=== PATIENT | female | born 1960 | race Caucasian/White ===

== ENCOUNTER 2018-03-23 15:26 | Inpatient (IN) | payer OTHER, SELFPAY ==
[2018-03-23 15:27] VITALS: BP 127/66; PULSE 117; RESP 16; TEMP 37.2; O2SAT 99; BMI 18.9
--- NOTE | 2018-03-23 15:37 | CT_ITS ---
STUDY: CT ABDOMEN AND PELVIS WITHOUT CONTRAST REASON FOR EXAM: Female, 57 years old. Right flank pain. RADIATION DOSAGE (If Supplied By Facility): CTDIvol = ( 6.04 ) mGy, DLP = ( 294.46 ) mGycm TECHNIQUE: Transaxial images were obtained from the dome of the diaphragm to the symphysis pubis without oral contrast, and without intravenous contrast. Sagittal and coronal images were reconstructed. Individualized dose optimization techniques were used for this CT. COMPARISON: None. FINDINGS: There is a 0.5 cm nodular density in the left lung base. The visualized portions of the heart are within normal limits. Normal liver. Normal gallbladder and extrahepatic biliary system. Normal spleen. Normal pancreas. Normal bilateral adrenal glands. There is mild hydronephrosis of the right kidney. Normal left kidney. No stones are seen. There are calcified phleboliths in the pelvis. Normal visualized stomach. Normal small intestine. Normal colon. The appendix is visualized and appears normal. Normal abdominal aorta. Normal inferior vena cava. Normal retroperitoneum. Normal urinary bladder. There is no free fluid in the abdomen or pelvis. Normal abdominal wall. There is grade 1 spondylolisthesis at L5-S1 with bilateral pars interarticularis defects of L5. CT/Abdomen/Pelvis without Cont IMPRESSION: Mild right hydronephrosis. No stones are seen. Electronically Signed: Carlos Burnette MD at 17:19 EDT , Service support ,
--- NOTE | 2018-03-23 15:38 | ED.VISSUMM ---
- ER Visit Summary Date of Service: 03/23/18 Chief Complaint: I think I have a kidney stone History of Present Illness: The patient is a 57 F who presents with right flank pain and abdominal pain similar to when she has had kidney stones in the past. The last episode she had was about 2-3 years ago. She does have a history of requiring a ureteral stent. She has had sharp right flank pain which waxes and wanes since yesterday. She currently rates this as a 7 out of 10. She also complains of suprapubic abdominal pressure-like pain. She denies fevers nausea vomiting. No recent illness otherwise. She does report urinary urgency. No gross hematuria. Physical Examination: Afebrile heart rate 117 Patient appears uncomfortable Heart regular rhythm tachycardia Lungs are clear Abdomen soft nondistended she does have some suprapubic tenderness Right CVA tenderness Alert Test Results: Laboratory studies notable for white blood cell count of 18.5. Urinalysis shows 500 leukocyte esterase positive nitrates greater than 100 WBCs and 2+ bacteria. Lactic acid is normal. Blood and urine cultures were sent. CT the flank shows mild right hydronephrosis otherwise normal. Emergency Department Course and Treatment: Patient was treated with IV fluids and Toradol here. She is resting comfortably on reevaluation. However given her tachycardia leukocytosis and flank pain I do believe this is pyelonephritis. She was given IV Rocephin and I feel should be admitted. She is agreeable to this plan. Treatment Plan: [] Disposition: Admit Impression: Pyelonephritis This note was generated with [employer] dictation software. It may contain incorrect words, spelling, and punctuation that were not noted in review of the chart prior to signing ED Disposition - Plan for ED Patient: Chief Complaint: Flank Pain Referrals: Care Physician,No Primary [Primary Care Provider] -
[2018-03-23] MEDS: Ketorolac 30 MG/ML Syringe IV (16:01)
[2018-03-23] MEDS: 0.9% Normal Saline 1,000 ML 1000 ML IV (16:01)
[2018-03-23 16:15] LABS: Mucous, Urine 0 SEEN /hpf (<or=2+); Squamous Epithelial Cells - UA 0 SEEN /hpf (5-10)
[2018-03-23 16:18] LABS: Color, Urine Straw (Yellow); Glucose, Dipstick Normal (Normal); Ketone-Dipstick Negative (Negative); Leukocyte Esterase-Dipstick 500 /ul (Negative); Nitrite-Dipstick Positive (Negative); Occult Blood-Urine 250 /ul (Negative); Protein-Dipstick 100 mg/dl (Negative); Urine Bilirubin Dipstick Negative (Negative); Urine Clarity Cloudy (Clear); Urine Urobilinogen Normal (Normal)
[2018-03-23 16:19] LABS: Absolute Lymphocyte Count 1.94 X10^3/ul (0.83-4.51); Absolute Neutrophil Count 15.1 X10^3/uL (2.0-7.7); Basophil# 0.04 X10^3/uL; Basophil% 0.2 % (0-1); Eosinophil# 0.14 X10^3/uL; Eosinophils% 0.8 % (0-5); Hematocrit 42.5 % (37-47); Hemoglobin 14.1 g/dl (12.0-15.0); Lymphocyte # 1.94 X10^3/ul (4.0); Lymphocyte % 10.5 % (19-41); Mean Corp Hgb Conc 33.2 g/gl (32-36); Mean Corpuscular Hgb 30.7 pg (27.0-32.0); Mean Corpuscular Volume 92.4 fL (81-99); Mean Platelet Vol. 10.1 fl (6.2-12.0); Monocyte# 1.26 X10^3/uL; Monocyte% 6.8 % (0-10); Neutrophil # 15.12 X10^3/uL (2.7-7.7); Neutrophil % 81.6 % (47-70); Platelet Count 262 K/mm3 (150-450); RBC Distribution Width CV 13.7 % (11.6-14.6); RBC Distribution Width SD 45.9 fl (35.1-43.9); White Blood Count 18.5 K/mm3 (4.4-11.0)
[2018-03-23 16:20] LABS: POSITIVE COUNT NO; POSITIVE DIFFERENTIAL NO; POSITIVE MORPHOLOGY NO
[2018-03-23 16:24] LABS: Red Blood Cells-Urine 25-50 SEEN /hpf (0-5); White Blood Cells >100 SEEN /hpf (0-5)
[2018-03-23 16:26] LABS: Amorphous Sediment 2+
[2018-03-23 16:27] LABS: Bacteria 2+ /hpf (None Seen)
[2018-03-23 16:32] LABS: Anion Gap 8 (5-15); BUN 8 mg/dL (7-18); BUN/Creat Ratio 9.7 RATIO (10-20); Calcium,Total 8.8 mg/dL (8.5-10.1); Chloride 104 mmol/L (98-107); Creatinine, Serum 0.82 mg/dL (0.55-1.02); EST Glomerular Filtration Rate 75 mL/min (>60); Est Glom Filt Rate - Afr Amer 91 mL/min (>60); Estimated Creatinine Clearance 62.21 ml/min; Glucose 98 mg/dL (74-106); Potassium 3.9 mmol/L (3.5-5.1); Sodium Level 141 mmol/L (136-145)
[2018-03-23] MEDS: Ceftriaxone 1 GM/50 ML BAG IV (18:00)
[2018-03-23 18:01] VITALS: TEMP 36.7
[2018-03-23 18:11] VITALS: BP 118/79; PULSE 90; RESP 16; O2SAT 98
[2018-03-23 18:19] VITALS: BP 188/79; PULSE 72; RESP 16; TEMP 36.7; O2SAT 99
[2018-03-23] MEDS: HYDROmorphone 0.5 MG/0.5 ML SYRINGE IV (18:25)
--- NOTE | 2018-03-23 18:29 | PCM.HP.STD ---
Problem List (1) Sepsis Status: Acute (2) Pyelonephritis Status: Acute (3) Hydronephrosis Status: Acute History of Present Illness Date of Admission: 03/23/18 Chief Complaint: right flank pain The patient is a 57 year old F presents with right-sided pelvic pain and bladder pain. Began yesterday and is persisted. Patient does have a history of kidney stones in the family. Presented to the emergency room and was found to be septic. CAT scan showed some mild right hydronephrosis. Urinalysis positive for urinary tract infection and blood and urine cultures were performed. Patient received Rocephin. [] Past Medical History Medical History: Medical History (Last Updated 03/23/18 @ 18:31 by Tye Rinaldi DO) Kidney stones N20.0 Allergies No Known Allergies Allergy (Verified 03/23/18 15:29) Psychiatric History: No pertinent psych hx Lives: Spouse/ Significant Other Smoking Status: Current every day smoker Tobacco Use: Cigarettes Alcohol: None Drugs: None - *Family History Maternal History Items: - - no CAD Review of Systems Constitutional: Denies: Anorexia, Chills, Fever Eyes: Denies: Blurred vision, Double vision HEENT: Denies: Head Aches, Sinus Congestion, Sinus Drainage Cardiovascular: Denies: Chest Pain, Palpitations Respiratory: Denies: Cough, Shortness of breath at rest, Sputum production Gastrointestinal: Reports: - - suprapubic. right flank pain.. Denies: Constipation, Diarrhea, Dyspepsia Genitourinary: Denies: Dysuria Musculoskeletal: Denies: Joint Pain, Joint Tenderness Skin: Denies: Dryness, Jaundice Neurological: Denies: Numbness, Tingling, Focal weakness Psychiatric: Denies: Anxiety, Depression Hematologic/ Lymphatic: Denies: Easy Bruising, Easy Bleeding, Hx of blood clot Comment: All review of systems are negative except as mentioned in the history of present illness and the other review of systems. VTE Information - Inpt Only VTE Present on Admission: No VTE Pharm Prophylaxis ordered?: Yes Patient Problems: Active and Suspected Problems Sepsis (Acute) Pyelonephritis (Acute) Hydronephrosis (Acute) - Physical Exam General: Alert, Cooperative, No apparent distress, Well developed, Well nourished HEENT: Atraumatic, Normocephalic Oral: Moist Mucosa, No Gingival or Mucosal Lesions/ Ulcerations Neck: No Nodes, Thyroid Normal Size and Texture Lungs: Clear to auscultation, Normal air movement, No rhonchi, No wheeze Cardiovascular: Regular rate, Regular Rhythm, Normal S1, Normal S2, No murmurs Abdomen: Bowel Sounds Present, Soft, Non-Distended, No Hepato-splenomegaly, - - Right costovertebral angle tenderness Extremities: No edema, No Calf Tenderness Skin: No rashes, No breakdown Musculoskeletal: No Tenderness to Palpation of Joints or Extremities, No Muscle Wasting Neurological: Sensory exam intact to light touch and pain, Coordination normal Psych/Mental Status: Normal Affect, Appropriate Vital Signs Temp Pulse Resp BP Pulse Ox 36.7 C 72 16 188/79 H 99 03/23/18 18:19 03/23/18 18:19 03/23/18 18:19 03/23/18 18:19 03/23/18 18:19 Oxygen Delivery Method Room Air Weight: 53.342 kg Body Mass Index (BMI) 18.9 Laboratory Tests Past 24 Hrs 03/23/18 03/23/18 03/23/18 16:00 16:00 16:00 WBC 18.5 H RBC 4.60 Hgb 14.1 Hct 42.5 MCV 92.4 MCH 30.7 MCHC 33.2 RDW 13.7 RDW Differential 45.9 H Plt Count 262 MPV 10.1 Immature Gran % (Auto) 0.100 Neut % (Auto) 81.6 H Lymph % (Auto) 10.5 L [place] % (Auto) 6.8 Eos % (Auto) 0.8 Baso % (Auto) 0.2 Absolute Neuts (auto) 15.1 H Absolute Lymphs (auto) 1.94 Total Counted Not Reportable Sodium 141 Potassium 3.9 Chloride 104 Carbon Dioxide 29.0 Anion Gap 8 BUN 8 Creatinine 0.82 Estim Creat Clear Calc 62.21 Est GFR (MDRD) Af Amer 91 Est GFR (MDRD) Non-Af 75 BUN/Creatinine Ratio 9.7 L Glucose 98 Lactic Acid Calcium 8.8 Urine Color Straw Urine Clarity Cloudy Urine pH 7.0 Ur Specific [place] 1.010 Urine Protein 100 H Urine Glucose (UA) Normal Urine Ketones Negative Urine Occult Blood 250 H Urine Nitrite Positive H Urine Bilirubin Negative Urine Urobilinogen Normal Ur Leukocyte Esterase 500 H Urine RBC 25-50 SEEN Urine WBC >100 SEEN Ur Squamous Epith Cells 0 SEEN Amorphous Sediment 2+ Urine Bacteria 2+ Urine Mucus 0 SEEN 03/23/18 17:08 WBC RBC Hgb Hct MCV MCH MCHC RDW RDW Differential Plt Count MPV Immature Gran % (Auto) Neut % (Auto) Lymph % (Auto) [place] % (Auto) Eos % (Auto) Baso % (Auto) Absolute Neuts (auto) Absolute Lymphs (auto) Total Counted Sodium Potassium Chloride Carbon Dioxide Anion Gap BUN Creatinine Estim Creat Clear Calc Est GFR (MDRD) Af Amer Est GFR (MDRD) Non-Af BUN/Creatinine Ratio Glucose Lactic Acid 1.0 Calcium Urine Color Urine Clarity Urine pH Ur Specific [place] Urine Protein Urine Glucose (UA) Urine Ketones Urine Occult Blood Urine Nitrite Urine Bilirubin Urine Urobilinogen Ur Leukocyte Esterase Urine RBC Urine WBC Ur Squamous Epith Cells Amorphous Sediment Urine Bacteria Urine Mucus Clinical Impression(s) from Imaging Studies Abdomen/Pelvis CT 03/23/18 15:37 IMPRESSION: Mild right hydronephrosis. No stones are seen. Electronically Signed: Carlos Burnette MD at 17:19 EDT , Service support , Assessment/Plan All Active Problems Sepsis (Acute) Pyelonephritis (Acute) Hydronephrosis (Acute) 1. Sepsis Present on arrival Secondary to pyelonephritis Lactic acid was normal IV fluids 2. Right-sided pyelonephritis Continue with Rocephin De-escalate antibiotics accordingly based on culture results 3. Left-sided hydronephrosis Possibly related with a passed stone Monitor labs Follow-up urology as outpatient unless symptoms do get worse while she is here. 4. DVT prophylaxis with Lovenox Code Visit Inpatient E&M: 40894 Init Hosp L3
--- NOTE | 2018-03-23 18:36 | HP.PCM_ITS ---
Problem List (1) Sepsis Status: Acute (2) Pyelonephritis Status: Acute (3) Hydronephrosis Status: Acute History of Present Illness Date of Admission: 03/23/18 Chief Complaint: right flank pain The patient is a 57 year old F presents with right-sided pelvic pain and bladder pain. Began yesterday and is persisted. Patient does have a history of kidney stones in the family. Presented to the emergency room and was found to be septic. CAT scan showed some mild right hydronephrosis. Urinalysis positive for urinary tract infection and blood and urine cultures were performed. Patient received Rocephin. [] Past Medical History Medical History: Medical History (Last Updated 03/23/18 @ 18:31 by Tye Rinaldi DO) Kidney stones N20.0 Allergies No Known Allergies Allergy (Verified 03/23/18 15:29) Psychiatric History: No pertinent psych hx Lives: Spouse/ Significant Other Smoking Status: Current every day smoker Tobacco Use: Cigarettes Alcohol: None Drugs: None - *Family History Maternal History Items: - - no CAD Review of Systems Constitutional: Denies: Anorexia, Chills, Fever Eyes: Denies: Blurred vision, Double vision HEENT: Denies: Head Aches, Sinus Congestion, Sinus Drainage Cardiovascular: Denies: Chest Pain, Palpitations Respiratory: Denies: Cough, Shortness of breath at rest, Sputum production Gastrointestinal: Reports: - - suprapubic. right flank pain.. Denies: Constipation, Diarrhea, Dyspepsia Genitourinary: Denies: Dysuria Musculoskeletal: Denies: Joint Pain, Joint Tenderness Skin: Denies: Dryness, Jaundice Neurological: Denies: Numbness, Tingling, Focal weakness Psychiatric: Denies: Anxiety, Depression Hematologic/ Lymphatic: Denies: Easy Bruising, Easy Bleeding, Hx of blood clot Comment: All review of systems are negative except as mentioned in the history of present illness and the other review of systems. VTE Information - Inpt Only VTE Present on Admission: No VTE Pharm Prophylaxis ordered?: Yes Patient Problems: Active and Suspected Problems Sepsis (Acute) Pyelonephritis (Acute) Hydronephrosis (Acute) - Physical Exam General: Alert, Cooperative, No apparent distress, Well developed, Well nourished HEENT: Atraumatic, Normocephalic Oral: Moist Mucosa, No Gingival or Mucosal Lesions/ Ulcerations Neck: No Nodes, Thyroid Normal Size and Texture Lungs: Clear to auscultation, Normal air movement, No rhonchi, No wheeze Cardiovascular: Regular rate, Regular Rhythm, Normal S1, Normal S2, No murmurs Abdomen: Bowel Sounds Present, Soft, Non-Distended, No Hepato-splenomegaly, - - Right costovertebral angle tenderness Extremities: No edema, No Calf Tenderness Skin: No rashes, No breakdown Musculoskeletal: No Tenderness to Palpation of Joints or Extremities, No Muscle Wasting Neurological: Sensory exam intact to light touch and pain, Coordination normal Psych/Mental Status: Normal Affect, Appropriate Vital Signs Temp Pulse Resp BP Pulse Ox 36.7 C 72 16 188/79 H 99 03/23/18 18:19 03/23/18 18:19 03/23/18 18:19 03/23/18 18:19 03/23/18 18:19 Oxygen Delivery Method Room Air Weight: 53.342 kg Body Mass Index (BMI) 18.9 Laboratory Tests Past 24 Hrs 03/23/18 03/23/18 03/23/18 16:00 16:00 16:00 WBC 18.5 H RBC 4.60 Hgb 14.1 Hct 42.5 MCV 92.4 MCH 30.7 MCHC 33.2 RDW 13.7 RDW Differential 45.9 H Plt Count 262 MPV 10.1 Immature Gran % (Auto) 0.100 Neut % (Auto) 81.6 H Lymph % (Auto) 10.5 L [place] % (Auto) 6.8 Eos % (Auto) 0.8 Baso % (Auto) 0.2 Absolute Neuts (auto) 15.1 H Absolute Lymphs (auto) 1.94 Total Counted Not Reportable Sodium 141 Potassium 3.9 Chloride 104 Carbon Dioxide 29.0 Anion Gap 8 BUN 8 Creatinine 0.82 Estim Creat Clear Calc 62.21 Est GFR (MDRD) Af Amer 91 Est GFR (MDRD) Non-Af 75 BUN/Creatinine Ratio 9.7 L Glucose 98 Lactic Acid Calcium 8.8 Urine Color Straw Urine Clarity Cloudy Urine pH 7.0 Ur Specific [place] 1.010 Urine Protein 100 H Urine Glucose (UA) Normal Urine Ketones Negative Urine Occult Blood 250 H Urine Nitrite Positive H Urine Bilirubin Negative Urine Urobilinogen Normal Ur Leukocyte Esterase 500 H Urine RBC 25-50 SEEN Urine WBC >100 SEEN Ur Squamous Epith Cells 0 SEEN Amorphous Sediment 2+ Urine Bacteria 2+ Urine Mucus 0 SEEN 03/23/18 17:08 WBC RBC Hgb Hct MCV MCH MCHC RDW RDW Differential Plt Count MPV Immature Gran % (Auto) Neut % (Auto) Lymph % (Auto) [place] % (Auto) Eos % (Auto) Baso % (Auto) Absolute Neuts (auto) Absolute Lymphs (auto) Total Counted Sodium Potassium Chloride Carbon Dioxide Anion Gap BUN Creatinine Estim Creat Clear Calc Est GFR (MDRD) Af Amer Est GFR (MDRD) Non-Af BUN/Creatinine Ratio Glucose Lactic Acid 1.0 Calcium Urine Color Urine Clarity Urine pH Ur Specific [place] Urine Protein Urine Glucose (UA) Urine Ketones Urine Occult Blood Urine Nitrite Urine Bilirubin Urine Urobilinogen Ur Leukocyte Esterase Urine RBC Urine WBC Ur Squamous Epith Cells Amorphous Sediment Urine Bacteria Urine Mucus Clinical Impression(s) from Imaging Studies Abdomen/Pelvis CT 03/23/18 15:37 IMPRESSION: Mild right hydronephrosis. No stones are seen. Electronically Signed: Carlos Burnette MD at 17:19 EDT , Service support , Assessment/Plan All Active Problems Sepsis (Acute) Pyelonephritis (Acute) Hydronephrosis (Acute) 1. Sepsis * Present on arrival * Secondary to pyelonephritis * Lactic acid was normal * IV fluids 2. Right-sided pyelonephritis * Continue with Rocephin * De-escalate antibiotics accordingly based on culture results 3. Left-sided hydronephrosis * Possibly related with a passed stone * Monitor labs * Follow-up urology as outpatient unless symptoms do get worse while she is here. 4. DVT prophylaxis with Lovenox Code Visit Inpatient E&M: 99570 Init Hosp L3
[2018-03-23 18:55] VITALS: BMI 18.8
[2018-03-23 18:58] VITALS: BMI 18.9
[2018-03-23 19:07] VITALS: BP 116/72; PULSE 83; RESP 18; TEMP 36.6; O2SAT 99
[2018-03-23] MEDS: 0.9% Normal Saline 1,000 ML 150 ML IV (20:29)
[2018-03-23] MEDS: Phenazopyridine 95 MG Tablet 190 MG PO (20:30)
[2018-03-23] MEDS: oxyCODONE 5 MG Tablet PO (20:35)
[2018-03-23] MEDS: Acetaminophen 325 MG Tablet 650 MG PO (22:43)
[2018-03-24 00:56] VITALS: BP 110/74; PULSE 89; RESP 18; TEMP 36.7; O2SAT 100
[2018-03-24] MEDS: oxyCODONE 5 MG Tablet PO ×4 (00:59→20:41)
[2018-03-24 05:52] LABS: Absolute Lymphocyte Count 2.14 X10^3/ul (0.83-4.51); Basophil# 0.05 X10^3/uL; Basophil% 0.6 % (0-1); Eosinophils% 2.5 % (0-5); Hematocrit 33.2 % (37-47); Hemoglobin 10.7 g/dl (12.0-15.0); Lymphocyte # 2.14 X10^3/ul (4.0); Lymphocyte % 26.4 % (19-41); Mean Corp Hgb Conc 32.2 g/gl (32-36); Mean Platelet Vol. 10.1 fl (6.2-12.0); Monocyte# 0.73 X10^3/uL; Neutrophil # 4.99 X10^3/uL (2.7-7.7); Neutrophil % 61.4 % (47-70); Platelet Count 184 K/mm3 (150-450); RBC Distribution Width CV 13.8 % (11.6-14.6); Red Blood Count 3.57 M/mm3 (4.2-5.4); White Blood Count 8.1 K/mm3 (4.4-11.0)
[2018-03-24 05:53] LABS: POSITIVE COUNT NO; POSITIVE DIFFERENTIAL NO; POSITIVE MORPHOLOGY NO
[2018-03-24 06:26] LABS: Anion Gap 6 (5-15); BUN 7 mg/dL (7-18); BUN/Creat Ratio 10.4 RATIO (10-20); Calcium,Total 7.4 mg/dL (8.5-10.1); Chloride 109 mmol/L (98-107); Creatinine, Serum 0.68 mg/dL (0.55-1.02); EST Glomerular Filtration Rate 95 mL/min (>60); Est Glom Filt Rate - Afr Amer 114 mL/min (>60); Estimated Creatinine Clearance 74.63 ml/min; Glucose 94 mg/dL (74-106); Potassium 3.7 mmol/L (3.5-5.1); Sodium Level 143 mmol/L (136-145)
[2018-03-24] MEDS: Phenazopyridine 95 MG Tablet 190 MG PO ×3 (06:38→20:40)
[2018-03-24 06:40] VITALS: BP 118/71; PULSE 77; RESP 16; TEMP 36.5; O2SAT 100
--- NOTE | 2018-03-24 08:44 | PN_ITS ---
Patient Problems: Active and Suspected Problems (Last Updated 03/23/18 @ 18:31 by Tye Rinaldi DO ) Sepsis (Acute) Pyelonephritis (Acute) Hydronephrosis (Acute) Subjective: Patient is a 57-year-old lady admitted with right flank pain patient was found to have sepsis secondary to right-sided pyelonephritis antibiotics initiated per protocol admitted to the regular nursing floor for further management Objective: GENERAL: cooperative and in no apparent distress. HEENT: Clear conjunctiva, moist oral mucosa NECK; supple, normal thyroid, no distended JVD. CHEST: Clear to auscultation bilaterally, HEART: Regular S1 S2, no audible murmurs ABDOMEN: soft, non-tender, normoactive bowel sounds, RECTAL: deferred EXTREMITIES: No edema, no clubbing, no cyanosis. TILE SETTER: Awake; no lateralizing signs. SKIN: No Rash Vitals/I&O's: Vital Signs Temp Pulse Resp BP Pulse Ox 97.7 F L 77 16 118/71 100 03/24/18 06:40 03/24/18 06:40 03/24/18 06:40 03/24/18 06:40 03/24/18 06:40 Oxygen Delivery Method Room Air Weight: 53.07 kg Body Mass Index (BMI) 18.8 Intake and Output for Last 24 Hours 03/22/18 03/23/18 03/24/18 23:59 23:59 23:59 Intake Total 1866 / 1866 Output Total 550 / 550 Balance 1316 / 1316 Laboratory Results 03/24/18 05:25: WBC 8.1, RBC 3.57 L, Hgb 10.7 L, Hct 33.2 L, MCV 93.0, MCH 30.0 , MCHC 32.2, RDW 13.8, RDW Differential 47.0 H, Plt Count 184, MPV 10.1, Immature Gran % (Auto) 0.100, Neut % (Auto) 61.4, Lymph % (Auto) 26.4, [place] % ( Auto) 9.0, Eos % (Auto) 2.5, Baso % (Auto) 0.6, Absolute Neuts (auto) 5.0, Absolute Lymphs (auto) 2.14, Total Counted Not Reportable 03/24/18 05:25: Sodium 143, Potassium 3.7, Chloride 109 H, Carbon Dioxide 28.0, Anion Gap 6, BUN 7, Creatinine 0.68, Estim Creat Clear Calc 74.63, Est GFR (MDRD ) Af Amer 114, Est GFR (MDRD) Non-Af 95, BUN/Creatinine Ratio 10.4, Glucose 94, Calcium 7.4 L Current Medications Acetaminophen (Tylenol) 650 mg PO Q6H PRN PRN PRN Reason: Mild Pain (1-3)/Temp > 100.7 F Last Admin: 03/23/18 22:43 Dose: 650 mg Enoxaparin Sodium (Lovenox) 40 mg SC DAILY@1000 [place] Ceftriaxone Sodium (Rocephin) 1 gm in 50 mls @ 100 mls/hr IV Q24 [place] Magnesium Hydroxide (Milk Of Magnesia) 30 ml PO DAILY PRN PRN PRN Reason: Constipation Nicotine (Nicoderm Cq (Pbkc)) 14 mg TRANSDERM. DAILY [place] Last Admin: 03/23/18 20:55 Dose: 14 mg Ondansetron HCl (Zofran) 4 mg IV Q8H PRN PRN PRN Reason: NAUSEA Oxycodone HCl (Oxyir) 5 - 10 mg PO Q4H PRN PRN PRN Reason: MOD-SEVERE PAIN (4-10/10) Last Admin: 03/24/18 06:43 Dose: 10 mg Phenazopyridine HCl (Azo Standard) 190 mg PO TID [facility] Stop: 03/25/18 14:01 Last Admin: 03/24/18 06:38 Dose: 190 mg Sodium Chloride () 5 - 30 ml IV UD PRN PRN Reason: SALINE FLUSH Medical Necessity - Tobacco Use Smoking Status: Current every day smoker Tobacco Use: Cigarettes Assessment/Plan All Active Problems (Last Updated 03/23/18 @ 18:31 by Tye Rinaldi DO) Sepsis (Acute) Pyelonephritis (Acute) Hydronephrosis (Acute) Patient is a 57-year-old lady admitted with right flank pain 1. Sepsis secondary to right-sided pyelonephritis 2. Right-sided pyelonephritis patient was managed with Rocephin culture sent with plans to adjust antibiotic therapy based on culture result 3. Left-sided hydronephrosis this was thought to be related to a recently passed stone will continue to monitor 4. Tobacco dependence counseled on cessation, offered nicotine patch for tobacco cravings 5. DVT prophylaxis with Lovenox Clinical Impression(s) from Imaging Studies Abdomen/Pelvis CT 03/23/18 15:37 IMPRESSION: Mild right hydronephrosis. No stones are seen. Electronically Signed: Carlos Burnette MD at 17:19 EDT , Service support , Active Medications Acetaminophen (Tylenol) 650 mg PO Q6H PRN PRN PRN Reason: Mild Pain (1-3)/Temp > 100.7 F Last Admin: 03/23/18 22:43 Dose: 650 mg Enoxaparin Sodium (Lovenox) 40 mg SC DAILY@1000 [place] Last Admin: 03/24/18 09:53 Dose: 40 mg Ceftriaxone Sodium (Rocephin) 1 gm in 50 mls @ 100 mls/hr IV Q24 [place] Last Admin: 03/24/18 09:52 Dose: 100 mls/hr Magnesium Hydroxide (Milk Of Magnesia) 30 ml PO DAILY PRN PRN PRN Reason: Constipation Nicotine (Nicoderm Cq (Pbkc)) 14 mg TRANSDERM. DAILY [place] Last Admin: 03/23/18 20:55 Dose: 14 mg Nutritional Formula (Lactose Free) (Ensure Clear) 120 ml PO 4X/DAY [place] Last Admin: 03/24/18 14:11 Dose: 120 ml Ondansetron HCl (Zofran) 4 mg IV Q8H PRN PRN PRN Reason: NAUSEA Last Admin: 03/24/18 11:10 Dose: 4 mg Oxycodone HCl (Oxyir) 5 - 10 mg PO Q4H PRN PRN PRN Reason: MOD-SEVERE PAIN (4-10/10) Last Admin: 03/24/18 06:43 Dose: 10 mg Phenazopyridine HCl (Azo Standard) 190 mg PO TID [place] Stop: 03/25/18 14:01 Last Admin: 03/24/18 14:11 Dose: 190 mg Sodium Chloride () 5 - 30 ml IV UD PRN PRN Reason: SALINE FLUSH Last Admin: 03/24/18 11:10 Dose: 10 ml Code Visit Inpatient E&M: 33217 Subs Hosp L3
[2018-03-24] MEDS: Ceftriaxone 1 GM/50 ML BAG IV (09:52)
[2018-03-24] MEDS: Enoxaparin 40 MG/0.4 ML Syringe SC (09:53)
[2018-03-24 10:00] VITALS: BP 118/69; PULSE 80; RESP 18; TEMP 36.9; O2SAT 97
[2018-03-24] MEDS: 0.9% NaCl Peripheral Flush Adult/Peds IV (11:10)
[2018-03-24] MEDS: Ondansetron 4 MG/2 ML Vial IV (11:10)
--- NOTE | 2018-03-24 12:14 | CASEMGMT ---
See RN CM Assessmt link. DC PLAN: Home -Pt is newly moved to [place] from [place]. List of PCP's given, pt very independent-will make initial appointments. Yajaira UMANZOR RN ACM
[2018-03-24 16:00] VITALS: BP 126/67; PULSE 71; RESP 18; TEMP 36.5; O2SAT 97
[2018-03-24 20:48] VITALS: BP 108/54; PULSE 70; RESP 16; TEMP 37.1; O2SAT 98
[2018-03-25] MEDS: oxyCODONE 5 MG Tablet PO ×2 (02:35→10:08)
[2018-03-25 02:45] VITALS: BP 114/64; PULSE 77; RESP 16; TEMP 36.7; O2SAT 98
[2018-03-25] MEDS: Phenazopyridine 95 MG Tablet 190 MG PO (05:57)
--- NOTE | 2018-03-25 08:20 | DCINST_ITS ---
- Discharge Diagnoses Current Active Problems: Current Active and Chronic Problems (Last Updated 03/23/18 @ 18:31 by Tye Rinaldi DO) Sepsis (Acute) Pyelonephritis (Acute) Hydronephrosis (Acute) You will use the following diet at home:: No restrictions Your food should be the consistency of: Regular Discharge Activity: Return to Normal Activity Allergies/Adverse Reactions: Allergies No Known Allergies Allergy (Verified 03/23/18 15:29) Medications to take at Discharge Ciprofloxacin [Cipro] 500 mg PO BID #14 tab 03/25/18 The following prescriptions were given: Ciprofloxacin [Cipro] 500 mg PO BID #14 tab Primary Care Physician: Care Physician,No Primary [Primary Care Provider] - Please follow up with your Primary Care Physician in: in 5-7 days Test Results: Test results from this visit will be discussed in further detail at your follow- up appointment, if applicable. Proposed Discharge Date: 03/25/18
--- NOTE | 2018-03-25 08:22 | DS.PCM_ITS ---
Discharge Date and Diagnosis - Problem List Patient Problems: Active and Suspected Problems (Last Updated 03/23/18 @ 18:31 by Tye Rinaldi DO ) Sepsis (Acute) Pyelonephritis (Acute) Hydronephrosis (Acute) Date of Admission: 03/23/18 Date of Discharge: 03/25/18 - Primary Discharge Diagnosis Active and Suspected Problems (Last Updated 03/23/18 @ 18:31 by Tye Rinaldi DO ) Sepsis (Acute) Pyelonephritis (Acute) Hydronephrosis (Acute) - Secondary Discharge Diagnosis Chronic Problems (Last Updated 03/23/18 @ 18:31 by Tye Rinaldi DO) Tobacco dependence (Chronic) Hospital Course and Treatment Imaging Results: Clinical Impression(s) from Imaging Studies Abdomen/Pelvis CT 03/23/18 15:37 IMPRESSION: Mild right hydronephrosis. No stones are seen. Electronically Signed: Carlos Burnette MD at 17:19 EDT , Service support , Summary of Care Provided: Patient is a 57-year-old lady admitted with right flank pain 1. Sepsis secondary to right-sided pyelonephritis with E Coli 2. Right-sided pyelonephritis with E coli patient was managed with Rocephin culture sent discharged on cipro based on sensitivities 3. Left-sided hydronephrosis this was thought to be related to a recently passed stone 4. Tobacco dependence counseled on cessation, offered nicotine patch for tobacco cravings 5. DVT prophylaxis with Lovenox Discharge Diet: No Restrictions Discharge Activity: Return to Normal Activity Home Medications: Medications to take at Discharge Ciprofloxacin [Cipro] 500 mg PO BID #14 tab 03/25/18 Following Prescrptions Were Given to Patient: Ciprofloxacin [Cipro] 500 mg PO BID #14 tab Primary Care Physician: Care Physician,No Primary [Primary Care Provider] - Please follow up with your Primary Care Physician in: in 5-7 days Disposition: Home Minutes spent on discharge:: 46 Patient Condition:: Stable Medical Necessity - Tobacco Use Smoking Status: Current every day smoker Tobacco Use: Cigarettes Meaningful Use Info Meaningful Use Diagnoses (Choose all that apply): None applicable Code Visit Inpatient E&M: 09977 Disch Hosp
[2018-03-25 08:45] VITALS: BP 111/68; PULSE 79; RESP 18; TEMP 36.7; O2SAT 97
[2018-03-25] MEDS: 0.9% NaCl Peripheral Flush Adult/Peds IV (09:49)
[2018-03-25] MEDS: Ceftriaxone 1 GM/50 ML BAG IV (09:49)
== END 2018-03-25 10:59 | disposition home or self-care (01) | DRG 872 ==
LOC: ED 16:01 → MS3 18:40
PROVIDERS: Emergency Provider Emergency Medicine; Visit Provider Internal Medicine
DX: A41.9 Sepsis, unspecified organism (principal); N13.30 Unspecified hydronephrosis; N12 Tubulo-interstitial nephritis, not specified as acute or chronic; Z87.442 Personal history of urinary calculi; F17.210 Nicotine dependence, cigarettes, uncomplicated; B96.20 Unspecified Escherichia coli [E. coli] as the cause of diseases classified elsewhere
CPT/HCPCS: 36415; 74176; 80048; 81001; 83605; 85025; 87040; 87086; 87088; 87186; 97802; 99282; J7030; A4216; J2405

== ENCOUNTER 2021-12-06 11:30 | Outpatient (RCR) | payer MEDICAID, SELFPAY ==
--- NOTE | 2021-10-24 14:48 | HP.PTEVAL_ITS ---
Patient's Visit Information YINKA SUN is a 61 year old F referred to Physical Therapy by SATINDER Kaplan with a diagnosis of LOW BACK PAIN. Date of Evaluation: 10/24/21 Physical Therapist: Myron Wyatt PT, Cert MDT, OCS - Visit Plan Frequency: 2x /Week Duration: 4 Weeks Plan: PT INERVETIONS DLS ABD/BACK ,POSTURAL EX'S ,GRADED ROM and MODALTIES - Subjective This 61 y/o female presents to physical therapy with LOW BACK PAIN. Patient recently just got over COVID then in Sep noticed back pain. Patient went to ER at [facility] had MRI showed DDD L5-S1 . Patient was referred to pain management .for epidural injection but DR. manriquez recommend PT . MEDS : meloxicam. Aggravating factors lifting ,bending ,sitting. Alleviating factors walking ,standing. Coughing/sneezing/straining-. Bowel/bladder-. Denies paresthesia/tingling. Patient has no radicular symptoms in legs. Patient able to sleep okay. MHP helps symptoms. Patient symptoms affects QOL and function along housework tasks. VOCATION: retired. SOCIAL: single - Pain Bilateral Back Pain Intensity (Out of 10): 4 Pain Intensity Range: 10 - Objective POSTURE: mild forward posture. PALAPTION: tender LS/SI. GAIT: reciprocal pattern. NEURO: denies paresthesia /tingling L4-5.L5-S1 2/3. SYMMTRIES: align. MMT: quads/hams 4/5 , hip flexion 4/5,hip abd 4-/5,ankle 4/5. LUMBAR ROM : flexion min loss ,extension min loss ,side glides min loss. FLEXABLITY: hamstrings min tight - Special Tests L/S Slump test left side: Negative L/S Slump test right side: Negative L/S Left Straight Leg Raise: Negative L/S Right Straight Leg Raise: Negative Lumbar Standing: Flexion - Mechanical Response: No effect Lumbar Standing: Flexion - Symptoms During Testing: No effect Lumbar Standing: Flexion - Symptoms After Testing: No effect Lumbar Standing: Extension - Mechanical Response: No effect Lumbar Standing: Extension - Symptoms During Testing: No effect Lumbar Standing: Extension - Symptoms After Testing: No effect Lumbar Standing: Right Side Glides - Mechanical Response: No effect Lumbar Standing: Right Side [place] - Symptoms During Testing: No effect Lumbar Standing: Right Side [place] - Symptoms After Testing: No effect Lumbar Standing: Left Side [place] - Mechanical Response: No effect Lumbar Standing: Left Side [place] - Symptoms During Testing: No effect Lumbar Standing: Left Side [place] - Symptoms After Testing: No effect Lumbar Lying: Flexion - Mechanical Response: No effect Lumbar Lying: Flexion - Symptoms During Testing: Increases Lumbar Lying: Flexion - Symptoms After Testing: No worse Lumbar Lying: Extension - Symptoms During Testing: Produces Lumbar Lying: Extension - Symptoms After Testing: No worse - Balance/Special Test Scores Oswestry Low Back Score: 22 - Goals Goal 1:: Patient to be I with HEP Goal Time Frame: 4-6 Weeks Goal 2:: Patient to demonstrate 50% improvement with decrease pain to improve function. Goal Time Frame: 4-6 Weeks Goal 3:: Patient to improve lumbar ROM for function of recovery to lift laundry basket. Goal Time Frame: 4-6 Weeks Goal 4:: Patient to improve posture/body mechanics 90% of the time. Goal Time Frame: 4-6 Weeks Goal 5:: Patient to back oswestry score by 5 points to improve QOL Goal Time Frame: 4-6 Weeks - Rehabilitation Potential Physical Therapy Diagnosis: This patient has LBP on left side with pain with position ,motion testing affects ability with housework tasks and ADLS' thus benefit from skilled PT Rehabilitation Potential: Good - Anticipated Interventions Patient/Client Instruction: Educate patient on: Condition, Plan of Care For the Purpose of:: To decrease pain, To increase ROM, To improve muscle performance and motor function, To improve ability to perform ADL's, To increase tolerance to activity/condition/position, To improve ability of physical actions for home/community/work/leisure, To improve health of tissue, To decrease soft tissue restriction, To increase flexibility/ROM, To prevent re-injury Therapeutic Exercise to Include: Strength training, Body mechanics, Postural training, Flexibilty training, Dynamic Lumbar Stabilization For the Purpose of:: To decrease pain, To improve muscle performance and motor function, To improve ability to perform ADL's, To increase tolerance to activity/condition/position, To improve ability of physical actions for home/community/work/leisure, To improve health of tissue, To decrease soft tissue restriction, To increase flexibility/ROM, To prevent re-injury TENS: Yes IF ES: Yes Cryotherapy (ice pack, ice massage): Yes Thermo therapy (hot pack): Yes Ultrasound (thermal/non thermal): Yes For the Purpose of:: To decrease pain, To improve nutrient delivery to tissue, To increase oxygenation perfusion, To improve health of tissue, To decrease soft tissue restriction Thank you for the opportunity to evaluate your patient. For Medicare and Medicare HMO plans, please review the plan of care and approve it. It will need to be FAXED BACK to us at [phone] for Medicare purposes. For Medicare only, by signing this I certify the plan of care. Please let me know if there are questions or concerns regarding this plan of care. Physician Signature: Date:
--- NOTE | 2022-04-13 11:03 | HP.PT.NRP ---
YINKA SUN was seen in my office for initial evaluation on 10/24/21. The following Plan of Care was established for this patient: Initial Frequency: 2x /Week Initial Duration: 4 Weeks Patient/Client Instruction: Educate patient on: Condition, Plan of Care For the Purpose of:: To decrease pain, To increase ROM, To improve muscle performance and motor function, To improve ability to perform ADL's, To increase tolerance to activity/condition/position, To improve ability of physical actions for home/community/work/leisure, To improve health of tissue, To decrease soft tissue restriction, To increase flexibility/ROM, To prevent re-injury Therapeutic Exercise to Include: Strength training, Body mechanics, Postural training, Flexibilty training, Dynamic Lumbar Stabilization For the Purpose of:: To decrease pain, To improve muscle performance and motor function, To improve ability to perform ADL's, To increase tolerance to activity/condition/position, To improve ability of physical actions for home/community/work/leisure, To improve health of tissue, To decrease soft tissue restriction, To increase flexibility/ROM, To prevent re-injury TENS: Yes IF ES: Yes Cryotherapy (ice pack, ice massage): Yes Thermo therapy (hot pack): Yes Ultrasound (thermal/non thermal): Yes For the Purpose of:: To decrease pain, To improve nutrient delivery to tissue, To increase oxygenation perfusion, To improve health of tissue, To decrease soft tissue restriction This patient was last seen in our office . Pertinent comments regarding their Physical therapy will appear below: Patient seen for LBP for DLS ,postural ex's for 11 visits doing well thus d/c At this point I will be discontinuing this patient from physical therapy. I would be happy to see this patient again in the future if found appropriate by the physician. Thank you! Myron Wyatt, PT, Cert MDT, OCS Balance/Gait/Functional tests - Balance/Special Test Scores Oswestry Low Back Score: 3
== END 2021-12-06 19:00 | disposition home or self-care (01) ==
LOC: PT 11:30
PROVIDERS: PCP Physician Assistant; Referring Provider Physician Assistant; Visit Provider Physician Assistant
DX: M54.50 Low back pain, unspecified (principal)
CPT/HCPCS: 97035; 97110; 97162

== ENCOUNTER → 2022-10-10 | Outpatient (CLI) | payer MEDICAID, SELFPAY ==
--- NOTE | 2022-10-10 12:48 | US_ITS ---
INDICATION: NODULE EXAMINATION: Ultrasound US Thyroid (eg thyroid, parathyroid, parotid) TECHNIQUE: Donohue scale and color doppler imaging was performed of the thyroid gland. COMPARISON: None. FINDINGS: RIGHT THYROID LOBE: 5.2 x 1.7 x 1.6 cm. Homogeneous echotexture with normal vascularity. [There are up to cystic 4 mm nodule. This is solid heterogeneous right thyroid 1.5 x 1.3 x 1.8 cm nodule posteriorly. There is a lower pole complex 8 x 7 x 4 mm nodule. LEFT THYROID LOBE: 5.2 x 1.2 x 1.5 cm. Homogeneous echotexture with normal vascularity. [Multiple cystic nodules up to 6 mm. There is a lower pole 1.8 x 1.2 x 0.8 cm mixed solid/cystic nodule. There is another lower pole 7 x 6 x 4 mm complex nodule. ISTHMUS: 1.9 mm. No thyroid nodules are present. US/Thyroid IMPRESSION: Multiple thyroid nodules bilaterally as noted. Electronically Signed: Loy Rendon DO at 23:57 EST ,
--- NOTE | 2022-10-11 05:32 | PFTCOMP_ITS ---
COMPLETE PULMONARY FUNCTION TEST INTERPRETATION Brief HPI: Patient is a 62-year-old female, currently under the care of Germaine Lew, who presents to [facility] for complete pulmonary function tests secondary to diagnosis of COPD. Respiratory therapist reports good effort and reproducible results. Interpretation: Forced expiration spirometry shows no large airways obstructive ventilatory defect with an FEV1 of 82% predicted. There is no significant bronchodilator response by strict ATS criteria. Spirograms are of good quality and plateau normally. The respiratory flow volume loop shows a normal pattern. Lung volumes by body plethysmography show a normal total lung capacity at 5 L, 95% predicted. All other lung volumes are within normal limits. Diffusion capacity by carbon monoxide is normal at 111% predicted. The airway resistance is slightly elevated. No previous pulmonary function tests were available for review. Impression: These pulmonary function tests are grossly within normal limits and not compatible with a diagnosis of COPD. Asthma cannot be excluded. Consider bronchoprovocation study if this is suspected.
== END | disposition home or self-care (01) ==
LOC: PSN 12:47
PROVIDERS: PCP Physician Assistant; Visit Provider Physician Assistant
DX: J44.9 Chronic obstructive pulmonary disease, unspecified (principal); E04.2 Nontoxic multinodular goiter
CPT/HCPCS: 76536; 94060; 94726; 94729

== ENCOUNTER → 2022-10-29 | Outpatient (CLI) | payer MEDICAID, SELFPAY ==
[2022-10-29 16:48] LABS: Calcium,Total 10.2 mg/dL (8.5-10.1); Free T3 2.7 pg/mL (2.18-3.98); T4 Total, Thyroxin 12.8 ug/dL (4.8-13.9); Thyroid Stim Hormone (TSH) 1.35 uIU/mL (0.358-3.74)
[2022-10-30 08:21] LABS: PTHIN 33.2 pg/mL (18.4-80.1)
== END | disposition home or self-care (01) ==
LOC: PAVLAB 15:50
PROVIDERS: PCP Physician Assistant; Referring Provider Surgery; Visit Provider Surgery
DX: E04.2 Nontoxic multinodular goiter (principal)
CPT/HCPCS: 36415; 82310; 83970; 84436; 84443; 84481

== ENCOUNTER → 2022-10-30 | Outpatient (CLI) | payer MEDICAID, SELFPAY ==
--- NOTE | 2022-10-29 15:30 | FLU_PTH ---
PATIENT: YINKA SUN LOC: [facility] U#:[id number] AGE/SX: 62/F ROOM: RE10/30/[address]: Dr. Dilan Marin MD : 1960 BED: DIS: 10/30/2022 SPEC #: [id number] RECD: 10/30/22 08:14 STATUS: CONSTANCE REDavida #: [id number] IGOR: 10/29/22 15:[address]: Dilan Marin DEPT: CYTOLOGY RECD BY: Bettye Shoemaker ENTERED: 10/30/22 10:11 SP TYPE: Fluid OTHR DR: SATINDER Kaplan Tissues: A - Thyroid gland, NOS B - Thyroid gland, NOS Procedures: Special Stain Group II Surgery Specimen Level IV Cytospin Fluid Cytology Other HEADER OPERATION: Fine needle aspiration, right posterior inferior thyroid nodule PRE-OP DIAGNOSIS: Multiple thyroid nodules TISSUE SUBMITTED: A ? Right posterior inferior thyroid nodule fluid, B - Right posterior inferior thyroid nodule x4 slides DIAGNOSIS CYTOLOGY A. Fine needle aspiration, right posterior inferior thyroid nodule (cytospin and cell block): Negative for malignant cells. See comment. B. Fine needle aspiration, right posterior inferior thyroid nodule (smears): Benign, consistent with benign follicular nodule ([place] Category II). See comment. AM:jean 10/31/2022 COMMENT A. The specimen contains acute and chronic inflammatory cells and rare benign follicular cells. B. The [place] [facility] for thyroid diagnostic categorization was used in the evaluation of this case. The specimen is adequate for evaluation. CYTOLOGY STUDY Slides are reviewed. CYTOLOGY GROSS A - Received is 40 ml of red cloudy fluid labeled with the patient's name and and designated per the requisition as right posterior inferior thyroid nodule. Submitted for cytology preparation including cell block. B - Received are four smears labeled with the patient's name and designated per the requisition as right posterior inferior thyroid nodule. Submitted for staining. / 10/30/2022 TC:5 CPT: 96673 x2, 44742
== END | disposition home or self-care (01) ==
LOC: LABSPEC 08:46
PROVIDERS: PCP Physician Assistant; Referring Provider Surgery; Visit Provider Surgery
DX: E04.2 Nontoxic multinodular goiter (principal)
CPT/HCPCS: 88108; 88161; 88305; 88313

== ENCOUNTER → 2022-11-10 | Outpatient (CLI) | payer MEDICAID, SELFPAY ==
[2022-11-10 10:40] LABS: Anion Gap 8 (5-15); BUN 7 mg/dL (7-18); BUN/Creat Ratio 7.9 RATIO (10-20); Calcium,Total 9.2 mg/dL (8.5-10.1); Chloride 103 mmol/L (98-107); Creatinine, Serum 0.89 mg/dL (0.55-1.02); EST Glomerular Filtration Rate 68 mL/min (>60); Est Glom Filt Rate - Afr Amer 83 mL/min (>60); Glucose 115 mg/dL (74-106); Sodium Level 140 mmol/L (136-145)
[2022-11-10 10:41] LABS: Cholesterol 261 mg/dL (200); High Density Lipoprotein 55 mg/dL; Triglycerides 178 mg/dL; Very Low Density Lipoprotein 36 mg/dL (5-40)
== END | disposition home or self-care (01) ==
LOC: LAB 09:19
PROVIDERS: PCP Physician Assistant; Visit Provider Internal Medicine Cardiovascular Disease
DX: I10 Essential (primary) hypertension (principal); R07.9 Chest pain, unspecified; R06.02 Shortness of breath
CPT/HCPCS: 36415; 80048; 80061

== ENCOUNTER → 2022-11-16 | Outpatient (CLI) | payer MEDICAID, SELFPAY ==
--- NOTE | 2022-11-16 06:25 | ECHOCS_ITS ---
Reason For Study: Chest Pain Procedure This was a 2D Doppler, Color Flow transthoracic echocardiogram. Contrast injection was performed. Exam performed in department. Left Ventricle Normal size and thickness. The left ventricular ejection fraction is 60 %. Normal diastology for age. Mild posterior hypokinesis. Right Ventricle Normal right ventricle. Atria The left and right atria are normal. Mitral Valve Trivial mitral valve insufficiency. Tricuspid Valve Trivial tricuspid valve insufficiency. Unable to estimate RV systolic pressure due to insufficient tricuspid regurgitant envelope. Aortic Valve Trisinus/trileaflet aortic valve. There is no aortic stenosis. No aortic valve insufficiency. Pulmonic Valve The pulmonic valve is not well visualized. Great Vessels Normal sized aortic root. Pericardium/Pleural No pericardial effusion. Medication 20 gauge I.V. with prn adaptor inserted into right arm. Diluted definity 3.5ml given slow IV push to enhance endocardial definition. MMode/2D Measurements & Calculations LVIDd: 4.2 cm IVSd: 1.1 cm Ao root diam: 2.9 cm LVIDs: 3.3 cm LVPWd: 0.92 cm LA dimension: 3.3 cm RVDd: 2.8 cm FS: 20.6 % LAV(MOD-bp): 46.3 ml LVAd ap4: 28.2 cm2 SV(MOD-sp4): 44.3 ml LAV(MOD-bp) Indexed: 26.5 ml/m2 LVLd ap4: 7.0 cm LAV(MOD-sp2): 53.5 ml EDV(MOD-sp4): 93.4 ml LAV(MOD-sp4): 34.4 ml EDV(sp4-el): 97.3 ml LVAs ap4: 19.6 cm2 LVLs ap4: 6.5 cm ESV(MOD-sp4): 49.1 ml ESV(sp4-el): 49.7 ml EF(MOD-sp4): 47.4 % EF(sp4-el): 48.9 % SV(sp4-el): 47.6 ml LA A4 area: 15.0 cm2 RA A4 area: 10.1 cm2 Time Measurements MV dec time: 0.19 sec Doppler Measurements & Calculations MV E max dudley: 63.5 cm/sec Lat Peak E' Dudley: 7.7 cm/sec Med Peak E' Dudley: 8.0 cm/sec MV A max dudley: 89.3 cm/sec E/E' lat: 8.2 E/E' med: 7.9 MV E/A: 0.71 MV V2 max: 121.4 cm/sec Ao V2 max: 116.6 cm/sec LV V1 max: 83.9 cm/sec MV max P.9 mmHg Ao max P.4 mmHg LV V1 max P.8 mmHg MV V2 mean: 55.9 cm/sec Ao V2 mean: 80.7 cm/sec LV V1 mean P.6 mmHg MV mean P.5 mmHg Ao mean P.0 mmHg LV V1 mean: 61.6 cm/sec MV V2 VTI: 24.7 cm Ao V2 VTI: 26.6 cm LV V1 VTI: 19.5 cm AV (velocity ratio): 0.73 MR max dudley: 545.8 cm/sec PA V2 max: 117.9 cm/sec MR max P.2 mmHg PA V2 mean: 73.1 cm/sec ECHO/Echo Complete W/ Contrast Interpretation Summary The left ventricular ejection fraction is 60 %. Mild posterior hypokinesis Ordering Physician: Adia Holman Referring Physician: Germaine Lew Performed By: Jimmie Abraham RUST
--- NOTE | 2022-11-16 10:37 | STRESSREP_ITS ---
Stress Test Report Date: 11/16/2022 Procedure: Exercise tolerance test/imaging study Indications: Chest pain Consent: Per the patient Procedure: The patient exercised on a Rene protocol for 5 minutes and 30 seconds achieving a peak heart rate of 160 bpm (102% predicted maximal heart rate) with a peak blood pressure 178/78 mmHg and a peak MET capacity of 7.0 METs. The baseline ECG demonstrated normal sinus rhythm. The peak exercise ECG demonstrated no ischemic changes. Occasional PVC noted. The functional capacity was considered suboptimal. There was no complaint of chest discomfort during exercise or recovery. The examination was discontinued secondary to target heart rate being achieved and shortness of breath. The patient was injected with 12.0 mCi of technetium 99m Cardiolite and subsequently rest SPECT Cardiolite nuclear imaging was obtained in the horizontal long, vertical long, and short axis views. Post-exercise, the patient was injected with 36.0 mCi of technetium 99m Cardiolite and subsequently stress SPECT Cardiolite nuclear imaging was obtained in the horizontal long, vertical long, and short axis views. A gated Cardiolite study at peak stress was obtained. Rest and stress SPECT Cardiolite nuclear imaging status post realignment, normalization, and attenuation correction, demonstrates the appearance of relative uniform tracer uptake and myocardial perfusion appearing within normal limits. There is end systolic thickening and brightening. The gated Cardiolite study demonstrates myocardial thickening and inward wall motion. The reported LVEF is 62%. Impression: 1. Technically adequate (percent predicted maximal heart rate greater than 85%) exercise tolerance test 2. Peak exercise ECG with no ischemic changes 3. Occasional PVC noted 4. Rest and stress SPECT Cardiolite nuclear imaging demonstrate relative uniform tracer uptake and myocardial perfusion appearing within normal limits. 5. The gated Cardiolite study reports an LVEF of 62%. This note was generated with [employer] software. It may contain incorrect words, spelling, and punctuation that were not noted in checking the note before signing.
== END | disposition home or self-care (01) ==
LOC: CVS 06:24
PROVIDERS: PCP Physician Assistant; Visit Provider Internal Medicine Cardiovascular Disease
DX: I10 Essential (primary) hypertension (principal); R07.9 Chest pain, unspecified; R06.02 Shortness of breath
CPT/HCPCS: 78452; 93017; 93306; A9500; Q9957; A4216; C8929

== ENCOUNTER → 2023-03-11 | Outpatient (CLI) | payer MEDICAID, SELFPAY ==
[2023-03-11 08:59] LABS: AST(SGOT) 22 U/L (15-37); Alanine Aminotransfer ALT/SGPT 30 U/L (13-56); Anion Gap 6 (5-15); BUN 13 mg/dL (7-18); BUN/Creat Ratio 11.1 RATIO (10-20); Calcium,Total 9.3 mg/dL (8.5-10.1); Chloride 102 mmol/L (98-107); Cholesterol 167 mg/dL (200); Creatinine, Serum 1.17 mg/dL (0.55-1.02); EST Glomerular Filtration Rate 49 mL/min (>60); Est Glom Filt Rate - Afr Amer 60 mL/min (>60); Glucose 143 mg/dL (74-106); High Density Lipoprotein 55 mg/dL; Potassium 3.1 mmol/L (3.5-5.1); Sodium Level 137 mmol/L (136-145); Triglycerides 216 mg/dL; Very Low Density Lipoprotein 43 mg/dL (5-40)
== END | disposition home or self-care (01) ==
LOC: LAB 07:41
PROVIDERS: PCP Physician Assistant; Referring Provider Internal Medicine Cardiovascular Disease; Visit Provider Internal Medicine Cardiovascular Disease
DX: E78.5 Hyperlipidemia, unspecified (principal); I10 Essential (primary) hypertension; R06.02 Shortness of breath
CPT/HCPCS: 36415; 80048; 80061; 84450; 84460

== ENCOUNTER → 2023-03-25 | Outpatient (CLI) | payer MEDICAID, SELFPAY ==
[2023-03-25 13:30] LABS: Anion Gap 5 (5-15); BUN 14 mg/dL (7-18); BUN/Creat Ratio 13.7 RATIO (10-20); Chloride 103 mmol/L (98-107); Creatinine, Serum 1.02 mg/dL (0.55-1.02); EST Glomerular Filtration Rate 58 mL/min (>60); Est Glom Filt Rate - Afr Amer 70 mL/min (>60); Glucose 119 mg/dL (74-106); Potassium 3.5 mmol/L (3.5-5.1); Sodium Level 138 mmol/L (136-145)
== END | disposition home or self-care (01) ==
PROVIDERS: PCP Physician Assistant; Referring Provider Nurse Practitioner Family; Visit Provider Nurse Practitioner Family
DX: E87.6 Hypokalemia (principal)
CPT/HCPCS: 36415; 80048

== ENCOUNTER → 2023-10-02 | Outpatient (CLI) | payer BC, SELFPAY ==
[2023-10-02 10:10] LABS: AST(SGOT) 13 U/L (15-37); Alanine Aminotransfer ALT/SGPT 24 U/L (13-56); Cholesterol 163 mg/dL (200); High Density Lipoprotein 49 mg/dL; Triglycerides 176 mg/dL; Very Low Density Lipoprotein 35 mg/dL (5-40)
== END | disposition home or self-care (01) ==
LOC: LAB 08:37
PROVIDERS: PCP Physician Assistant; Referring Provider Internal Medicine Cardiovascular Disease; Visit Provider Internal Medicine Cardiovascular Disease
DX: E78.5 Hyperlipidemia, unspecified (principal); R06.02 Shortness of breath; I10 Essential (primary) hypertension
CPT/HCPCS: 36415; 80061; 84450; 84460

== ENCOUNTER → 2023-10-22 | Outpatient (CLI) | payer MEDICARE, SELFPAY ==
--- NOTE | 2023-10-22 14:11 | US_ITS ---
EXAM: US SOFT TISSUES HEAD AND NECK, THYROID CLINICAL INDICATION: Multiple thyroid nodules TECHNIQUE: Donohue scale and color doppler imaging was performed of the thyroid gland. COMPARISON: US Thyroid dated 10/10/2022 FINDINGS: LEFT THYROID LOBE: Left thyroid lobe measures 5.2 x 1.2 x 1.8 cm. Stable 12 mm jayme cystic and solid nodule remains wider than tall, isoechoic, slightly lobulated in contour and without microcalcification. TI-RADS points: 4. TI-RADS category: TR4. This nodule is moderately suspicious. Recommend follow-up thyroid ultrasounds at 1, 2 and 4 years. Additional hypoechoic lesions within the left thyroid lobe suggestive of colloid cysts. RIGHT THYROID LOBE: Right thyroid lobe measures 5.2 x 1.2 x 1.8 cm. Stable 1.7 cm nodule along the posterior aspect of the right thyroid lobe. Lesion is predominantly solid in nature, well-defined, wider than tall and without microcalcification. TI-RADS points: 3. TI-RADS category: TR3. This nodule is mildly suspicious. Recommend follow-up thyroid ultrasounds at 2 and 4 years. Stable 8 mm mixed cystic and solid nodule. TI-RADS points: 2. TI-RADS category: TR2. This nodule is not suspicious and no FNA or follow-up is necessary. Additional less than 5 mm colloid cysts noted within the right thyroid lobe. Homogeneous echotexture with normal vascularity. ISTHMUS: Isthmus measures 2 mm in AP dimension. No thyroid nodules are present. US/Thyroid IMPRESSION: Stable bilateral thyroid nodules. Recommend follow-up exam in 2 years. Electronically Signed: Ralph Ontiveros MD at 10:43 EST ,
--- OUTSIDE RECORDS SUMMARY | 2023-10-22 18:59 | XMS RPT_ITS | CCD ---
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 ER to obtain further testing which included the CTA chest. She was given Zpak and cough perles from the ER and pain resolved. She was sent to [facility] by her PCP (for insurance purposes) for PFT and thyroid scan. PFT will be requested. Has been on Symbicort 160/4.5 for COPD for 5-6 years. No prior PFT at that time. she reports that she quit smoking about 3 months ago. Her smoking use included cigarettes. She started smoking about 50 years ago. She has a 22.00 pack-year smoking history. She does not have any smokeless tobacco history on file. 09/10 ppd x 44 yrs. Was able to quit for 5 years. Stopped smoking 4 weeks ago. Secondhand smoke exposure? no Occupational exposure to vapors, gases, dust or fumes? 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 no Family history of lung disease? no Hospitalization for pulmonary issues no Prior intubation for mechanical ventilation no Outpatient treatment for pulmonary issues yes Pneumonia ~4-6 yrs of age Respiratory medications Albuterol Symbicort 160/4.5 Oxygen therapy None Other pertinent medications: None ROS All other review of systems reviewed and negative Patient's medications, allergies, past medical, surgical, social and family histories were reviewed and updated as appropriate. Current Outpatient Medications on File Prior to Encounter Medication Sig Dispense Refill albuterol 108 (90 Base) MCG/ACT inhaler Inhale 2 puffs into the lungs 4 times daily as needed for Wheezing and/or Shortness of breath. Use with spacer. 18 g 3 ALBUTEROL IN Inhale into the lungs. atorvastatin (LIPITOR) 10 MG tablet Take by mouth. budesonide-formoterol (SYMBICORT) 160-4.5 MCG/ACT inhaler Inhale 2 puffs into the lungs two times a day. Use with spacer. Rinse mouth after use. 10.2 g 3 dilTIAZem ER Coated Beads (CARDIZEM CD) 180 MG 24 hr capsule Take 180 mg by mouth daily. escitalopram (LEXAPRO) 10 MG tablet TAKE 1/2 (ONE-HALF) TABLET BY MOUTH ONCE DAILY FOR 7 DAYS AND THEN INCREASE TO 1 TABLET DAILY hydrOXYzine (ATARAX) 25 MG tablet TAKE 1 TABLET BY MOUTH THREE TIMES DAILY NEEDED FOR ANXIETY MAY CAUSE DROWSINESS pravastatin (PRAVACHOL) 40 MG tablet Take 40 mg by mouth nightly. Spacer/Aero-Holding Chambers (POCKET SPACER) CHANDA To use with HFA inhalers to better deposit medication into your lungs 1 each 3 No current facility-administered medications on file prior to encounter. No Known Allergies Physical Examination Visit Vitals BP 143/87 Pulse 83 Resp 20 Ht 5' 6 (1.676 m) Wt 68 kg (150 lb) SpO2 96% Comment: RA BMI 24.21 kg/m General Appearance: Alert, cooperative, no distress, appears stated age HEENT: AT NC, Pupils equal, conjunctiva/corneas clear, EOM's intact, Nares normal, septum midline, mmm, no pharyngeal exudates or lesions Lungs: CTAB, Easy symmetric bilateral chest excursion, no paradox or nasal flaring. Chest Wall: No tenderness or deformity Heart: Regular rate and rhythm, S1 and S2 normal, no murmurs appreciated Abdomen: Deferred Extremities: Atraumatic, no edema, cyanosis or clubbing Skin: Warm and dry Neuro: Moves all 4 ext spontaneously, no gross focal deficits Psych: Appropriate mood and affect The entirety of the above exam was performed on this date 01/08/2023 and has been reviewed, verified, and amended accordingly Diagnostic Studies Laboratory and Radiographic studies personally reviewed as appropriate PERTINENT IMAGES CT 09/26/2022 -- RUL GGO CT IMAGING CT CHEST WITHOUT IV CONTRAST 12/26/2022 IMPRESSION: 1. Stable 9 mm groundglass opacity in the right upper lobe. 2. Stable benign-appearing soft tissue nodules upper and lower lobes. 3. No acute process. 4. Atherosclerotic disease and coronary artery disease. Small pericardial effusion. 5. Continued surveillance is recommended [address] CHEST 09/26/2022 XRAY IMAGING XRAY CHEST 10/03/2022 CARDIAC TESTING N/A PET SCAN (IF APPLICABLE) N/A PULMONARY FUNCTION TESTING PFT 10/2022 ([facility]) 6MWT DATE Lowest SaO2 Distance OVERNIGHT OXIMETRY (TOÑITO) DATE Result LABS No results found for: PHART, [id number], PO2ART, O2HB, HEMATOCRITAB, METHB, [id number], SODIUMABG, KABG, BEART, CAION, GLUCOSEBLD No results found for: WHITEBLOODCE, HGB, HCT, MCV, PLT Discharge Instructions None Encounter Orders 1. Pulmonary nodules 2. Chronic obstructive pulmonary disease, unspecified COPD type (HCC) 3. Former smoker Orders Placed This Encounter Procedures CT Chest Without IV Contrast There are no discontinued medications. Return in about 6 months (around 07/11/2023) for follow up of pulmonary noduleCOPD and review SAME DAY chest CT. Immunization History Administered Date(s) Administered Moderna Covid-19 Vaccine 12/03/2020, 12/31/2020 documented in this encounter [facility] 10-17-2022 Plan of care note Patient discharged from the lung clinic at this time. Patient read and provided discharge instructions. Reviewed with patient Dr. Eugene's recommendations. Patient is aware to follow up in the clinic in 10 weeks. Reviewed with patient appointment date and time. Patient agrees with the above recommendations and voiced good understanding. Patient ambulated out of the clinic at this time for discharge home. [facility] 10-17-2022 Miscellaneous Notes Patient discharged from the lung clinic at this time. Patient read and provided discharge instructions. Reviewed with patient Dr. Eugene's recommendations. Patient is aware to follow up in the clinic in 10 weeks. Reviewed with patient appointment date and time. Patient agrees with the above recommendations and voiced good understanding. Patient ambulated out of the clinic at this time for discharge home. documented in this encounter [facility] 10-17-2022 Hospital Discharg e instructions Vannesa Hickman MST - 10/17/2022 2:01 PM EST Images from the original note were not included. Questions for reflection toward the goal of being a NONSMOKER. Write your answers on a piece of paper. Why do I want to quit smoking? 2. Why should I quit smoking? 3. If I look at myself in front of a mirror 1 year from now, what would I look like if I DID NOT quit smoking? Do I have more energy or less energy? How is my health? How are my relationships? How are you as an example to your loved ones? 4. If I look at myself in front of a mirror 5 years from now, what would I look like if I DID NOT quit smoking? Do I have more energy or less energy? How is my health? How are my relationships? How are you as an example to your loved ones? 5. If I look at myself in front of a mirror 1 year from now, what would I look like if I DID quit smoking? Do I have more energy or less energy? How is my health? How are my relationships? How are you as an example to your loved ones? 6. If I look at myself in front of a mirror 5 years from now, what would I look like if I DID quit smoking? Do I have more energy or less energy? How is my health? How are my relationships? How are you as an example to your loved ones? 7. Set a QUIT DATE -- this is your commitment to yourself that you are worth going through the challenges of becoming a NONSMOKER. You deserve better health, better energy, better relationships and a better life! 8. Place this sheet of paper where you can easily see it everyday. Review your answers everyday. CALL THE [place] QUIT LINE FOR ADDITIONAL SUPPORT SO YOU CAN BE SUCCESSFUL IN BECOMING A NONSMOKER [id number] Revised January 2020 documented in this encounter [facility] 10-17-2022 History of Presen t illness Narrative Nursing Note New Patient- 10/17/2022 Patient Name: Temi Keane : 1960 Vitals: 10/17/22 1308 BP: (!) 156/92 Pulse: 95 Temp: 98.3 F (36.8 C) SpO2: 98% Vaccines: Immunization History Administered Date(s) Administered Moderna Covid-19 Vaccine 12/03/2020, 12/31/2020 Patient arrived to Lung clinic at this time for new patient appointment and establishment into the Lung clinic. Patient ambulated to exam room, medications and history reviewed, vital signs obtained. Ready for Practitioner. FLO [place] Images from the original note were not included. Pulmonary Consultation / Initial Evaluation This record was generated using a voice activated system and may contain typographical and grammatical errors. Visit date: 10/17/2022 Patient Name: Temi Keane Date of : 1960 Primary Care Physician: No primary care provider on file. Referring Physician: Rajani Lew PA-C Reason for Visit: Lung nodule, COPD Assessment Bilateral pulmonary nodules (5-8 mm) and RUL GGO [address] 09/2022 Hx of R chest discomfort resolved after antibiotic therapy, and therefore may be inflammatory No prior CT for comparison Former smoker, recently quit 09/2022: 0.5 ppd x 44 years Hx of COVID-19 08/2021, did not require hospitalization COVID vaccine? Yes Recommendations CT images reviewed with the patient on the office monitor. Follow up with SAME DAY CT in 3 months. Request recent PFT for evaluation. She was commended for quitting smoking. Return in about 10 weeks (around 12/26/2022) for follow up of pulmonary nodules/GGO/COPD and review SAME DAY chest CT. She knows to call the office earlier if needed. I independently interviewed, examined and formulated the medical decision making as described above separate of and in addition to information entered above prior to the patient's visit. Subjective History of Present Illness: Ms. Keane is a 62 y.o. female here for evaluation of Lung nodule, COPD Went to [place] and on her way home, she started getting pain lower right anterior chest. Hurt constantly and when she would lay down, pain would go up to her upper R chest. Evaluated by her PCP and CXR ordered. Advised to go to the closest ER to obtain further testing which included the CTA chest. She was given Zpak and cough perles from the ER and pain resolved. She was sent to [facility] by her PCP (for insurance purposes) for PFT and thyroid scan. PFT will be requested. Has been on Symbicort 160/4.5 for COPD for 5-6 years. No prior PFT at that time. she reports that she quit smoking about 3 weeks ago. Her smoking use included cigarettes. She started smoking about 50 years ago. She has a 22.00 pack-year smoking history. She does not have any smokeless tobacco history on file. 09/10 ppd x 44 yrs. Was able to quit for 5 years. Stopped smoking 4 weeks ago. Secondhand smoke exposure? no Occupational exposure to vapors, gases, dust or fumes? 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 no Family history of lung disease? no Hospitalization for pulmonary issues no Prior intubation for mechanical ventilation no Outpatient treatment for pulmonary issues yes Pneumonia ~4-6 yrs of age Respiratory medications Albuterol Symbicort 160/4.5 Oxygen therapy None Other pertinent medications: None ROS All other review of systems reviewed and negative Past Medical History: Diagnosis Date COPD (chronic obstructive pulmonary disease) (HCC) Past Surgical History: Procedure Laterality Date BLADDER SURGERY CYST REMOVAL HYSTERECTOMY 1981 History reviewed. No pertinent family history. Social History Socioeconomic History Marital status: Single Tobacco Use Smoking status: Former Packs/day: 0.50 Years: 44.00 Pack years: 22.00 Types: Cigarettes Start date: 1972 Quit date: 09/24/2022 Years since quittin.0 Current Outpatient Medications on File Prior to Encounter Medication Sig Dispense Refill ALBUTEROL IN Inhale into the lungs. [DISCONTINUED] budesonide-formoterol (SYMBICORT) 160-4.5 MCG/ACT inhaler Inhale 2 puffs into the lungs two times a day. [DISCONTINUED] Tiotropium [employer] Mdl Monohydrate (SPIRIVA HANDIHALER IN) Inhale into the lungs. No current facility-administered medications on file prior to encounter. Not on File Physical Examination Visit Vitals BP (!) 156/92 Pulse 95 Temp 98.3 F (36.8 C) Wt 66 kg (145 lb 8 oz) SpO2 98% General Appearance: Alert, cooperative, no distress, appears stated age HEENT: AT NC, Pupils equal, conjunctiva/corneas clear, EOM's intact, Nares normal, septum midline, mmm, no pharyngeal exudates or lesions Lungs: CTAB, Easy symmetric bilateral chest excursion, no paradox or nasal flaring. Chest Wall: No tenderness or deformity Heart: Regular rate and rhythm, S1 and S2 normal, no murmurs appreciated Abdomen: Deferred Extremities: Atraumatic, no edema, cyanosis or clubbing Skin: Warm and dry Neuro: Moves all 4 ext spontaneously, no gross focal deficits Psych: Appropriate mood and affect Diagnostic Studies Laboratory and Radiographic studies personally reviewed as appropriate PERTINENT IMAGES CT 09/26/2022 -- RUL GGO CT IMAGING CT CHEST 09/26/2022 XRAY IMAGING XRAY CHEST 10/03/2022 CARDIAC TESTING PET SCAN (IF APPLICABLE) PULMONARY FUNCTION TESTING 6MWT DATE Lowest SaO2 Distance OVERNIGHT OXIMETRY (TOÑITO) DATE Result LABS No results found for: PHART, [id number], PO2ART, O2HB, HEMATOCRITAB, METHB, ICB2XMB, SODIUMABG, KABG, BEART, CAION, GLUCOSEBLD No results found for: WHITEBLOODCE, HGB, HCT, MCV, PLT Discharge Instructions Questions for reflection toward the goal of being a NONSMOKER. Write your answers on a piece of paper. Why do I want to quit smoking? 2. Why should I quit smoking? 3. If I look at myself in front of a mirror 1 year from now, what would I look like if I DID NOT quit smoking? Do I have more energy or less energy? How is my health? How are my relationships? How are you as an example to your loved ones? 4. If I look at myself in front of a mirror 5 years from now, what would I look like if I DID NOT quit smoking? Do I have more energy or less energy? How is my health? How are my relationships? How are you as an example to your loved ones? 5. If I look at myself in front of a mirror 1 year from now, what would I look like if I DID quit smoking? Do I have more energy or less energy? How is my health? How are my relationships? How are you as an example to your loved ones? 6. If I look at myself in front of a mirror 5 years from now, what would I look like if I DID quit smoking? Do I have more energy or less energy? How is my health? How are my relationships? How are you as an example to your loved ones? 7. Set a QUIT DATE -- this is your commitment to yourself that you are worth going through the challenges of becoming a NONSMOKER. You deserve better health, better energy, better relationships and a better life! 8. Place this sheet of paper where you can easily see it everyday. Review your answers everyday. CALL THE [place] QUIT LINE FOR ADDITIONAL SUPPORT SO YOU CAN BE SUCCESSFUL IN BECOMING A NONSMOKER [id number] Encounter Orders 1. Pulmonary nodules 2. Ground glass opacity present on imaging of lung 3. Chronic obstructive pulmonary disease, unspecified COPD type (HCC) 4. Former smoker Orders Placed This Encounter Procedures CT Chest Without IV Contrast OH DEMO&/EVAL OF PT UTILIZ AERSL GEN/NEB/INHLR/IP [place] TOBACCO USE CESSATION INTERMEDIATE 3-10 MINUTES Medications Discontinued During This Encounter Medication Reason Tiotropium [employer] Mdl Monohydrate (SPIRIVA HANDIHALER IN) Patient not taking budesonide-formoterol (SYMBICORT) 160-4.5 MCG/ACT inhaler Medications Ordered This Encounter Disp Refills Start End budesonide-formoterol (SYMBICORT) 160-4.5 MCG/ACT inhaler 10.2 g 3 10/17/2022 Inhale 2 puffs into the lungs two times a day. Use with spacer. Rinse mouth after use. - Inhalation Spacer/Aero-Holding Chambers (POCKET SPACER) CHANDA 1 each 3 10/17/2022 To use with HFA inhalers to better deposit medication into your lungs Notes to Pharmacy: Please demonstrate appropriate use albuterol 108 (90 Base) MCG/ACT inhaler 18 g 3 10/17/2022 Inhale 2 puffs into the lungs 4 times daily as needed for Wheezing and/or Shortness of breath. Use with spacer. - Inhalation Return in about 10 weeks (around 12/26/2022) for follow up of pulmonary nodules/GGO/COPD and review SAME DAY chest CT. Immunization History Administered Date(s) Administered Moderna Covid-19 Vaccine 12/03/2020, 12/31/2020 documented in this encounter [facility] Pulmonary nodules Other nonspecific abnormal finding of lung field Ground glass opacity present on imaging of lung [facility] Diagnosis Pulmonary nodules- Primary Other nonspecific abnormal finding of lung field Chronic obstructive pulmonary disease, unspecified COPD type (HCC) Former smoker Personal history of tobacco use, presenting hazards to health [facility] Diagnosis Pulmonary nodules Other nonspecific abnormal finding of lung field Chronic obstructive pulmonary disease, unspecified COPD type (HCC) Former smoker Personal history of tobacco use, presenting hazards to health [facility] Procedure Authorization (Urgent) - Incomplete Specialty Diagnoses / Procedures Referred By Contac t Referred To Contact Radiology Diagnoses Pulmonary nodules Ground glass opacity present on imaging of lung Procedures CT Chest Without IV Contrast Ale Eugene DO [address] [facility] [address] [place] [address] Referral ID Status Reason Start Date Expiration Date V isits Requested Visits Authorized [id number] Incomplete 10/17/2022 11/15/2023 1 1 [facility] for referral (narrative)* Procedure Authorization (Urgent) - Closed Specialty Diagnoses / Procedures Referred By Contac t Referred To Contact Radiology Diagnoses Pulmonary nodules Ground glass opacity present on imaging of lung Procedures CT Chest Without IV Contrast Ale Eugene DO [address] [facility] [address] [place] [address] [phone] Referral ID Status Reason Start Date Expiration Date Visits Re quested Visits Authorized [id number] Closed 12/12/2022 03/12/2023 1 1 [facility] for referral (narrative)* Procedure Authorization (Urgent) - Incomplete Specialty Diagnoses / Procedures Referred By Contac t Referred To Contact Radiology Diagnoses Pulmonary nodules Chronic obstructive pulmonary disease, unspecified COPD type (HCC) Former smoker Procedures CT Chest Without IV Contrast Ale Eugene DO [address] [facility] [address] [place] [address] Referral ID Status Reason Start Date Expiration Date V isits Requested Visits Authorized [id number] Incomplete 01/08/2023 02/09/2024 1 1 [facility] Procedure Authorization (Urgent) - Closed Specialty Diagnoses / Procedures Referred By Contac t Referred To Contact Radiology Diagnoses Pulmonary nodules Chronic obstructive pulmonary disease, unspecified COPD type (HCC) Former smoker Procedures CT Chest Without IV Contrast Ale Eugene DO [address] [facility] [address] [place] [address] [facility] [address] [place] [id number] Referral ID Status Reason Start Date Expiration Date Visits Re quested Visits Authorized [id number] Closed 06/27/2023 09/08/2023 1 1 [facility] Narr[facility]* Procedure Authorization (Urgent) - Closed Specialty Diagnoses / Procedures Referred By Contac t Referred To Contact Radiology Diagnoses Pulmonary nodules Ground glass opacity present on imaging of lung Procedures CT Chest Without IV Contrast Ale Eugene DO [address] [facility] [address] [place] [address] [phone] Referral ID Status Reason Start Date Expiration Date Visits Re quested Visits Authorized [id number] Closed 12/12/2022 03/12/2023 [address] [facility] N[facility]* Procedure Authorization (Urgent) - Closed Specialty Diagnoses / Procedures Referred By Contac t Referred To Contact Radiology Diagnoses Pulmonary nodules Chronic obstructive pulmonary disease, unspecified COPD type (HCC) Former smoker Procedures CT Chest Without IV Contrast Ale Eugene DO [address] [facility] [address] [place] [address] [address] [phone] Referral ID Status Reason Start Date Expiration Date Visits Re quested Visits Authorized [id number] Closed 06/27/2023 09/08/2023 1 1 [facility] Summary Purpose Family History No Known Family History Onset: 9 Status:Active No Known Family History Onset: 9 Status:Active Advance Directives No Advanced Directives Records FoundNo Advanced Directives Records FoundNo Advanced Directives Records Found Additional Source Comments INFORMATION SOURCE (unrecogn ized section and content) DATE CREATED AUTHOR AUTHOR'S ORGANIZ ATION 10/04/2022 [facility] DATE CREATED AUTHOR AUTHOR'S ORGANIZ ATION 07/14/2023 [facility] Reason for Visit (unrecogniz ed section and content) Specialty Diagnoses / Procedures Referred By Contkomal t Referred To Contact Pulmonology Diagnoses COPD, pulmonary nodules, CD's received Rajani Lew PA-C [address] [place] [address] [place] [address] [facility] [place] [address] [place] [address] Referral ID Status Reason Start Date Expiration Date V isits Requested Visits Authorized [id number] Incomplete 10/03/2022 1 1 Reason Comments Follow-up Care Teams (unrecognized sec tion and content) Associate Director Of Development Relationship Specialty Start Date End Date Rajani Lew PA-C [address] [place] [address] [place] [address] PCP - General 12/21/22 Associate Director Of Development Relationship Specialty Start Date End Date Rajani Lew PA-C [address] [place] [address] [place] [address] PCP - General 12/21/22 FOR RECORDS PERTAINING TO PATIENTS WHO ARE OR HAVE BEEN ENROLLED IN A CHEMICAL DEPENDENCY/SUBSTANCEABUSE PROGRAM, SOME INFORMATION MAY BE OMITTED. This clinical summary was aggregated from multiple sources. Caution should be exercised in using it in the provision of clinical care. This summary normalizes information from multiple sources, and as a consequence, information in this document may materially change the coding, format and clinical context of patient data. In addition, data may be omitted in some cases. CLINICAL DECISIONS SHOULD BE BASED ON THE PRIMARY CLINICAL RECORDS. [facility]. provides no warranty or guarantee of the accuracy or completeness of information in this document.
== END | disposition home or self-care (01) ==
LOC: US 14:10
PROVIDERS: PCP Physician Assistant; Referring Provider Surgery; Visit Provider Surgery
DX: E04.2 Nontoxic multinodular goiter (principal)
CPT/HCPCS: 76536

== ENCOUNTER → 2024-03-31 | Outpatient (CLI) | payer BC, SELFPAY | END | disposition home or self-care (01) | LOC: PSN 10:26 | PROVIDERS: PCP Physician Assistant; Referring Provider Internal Medicine Cardiovascular Disease; Visit Provider Internal Medicine Cardiovascular Disease | DX: R00.2 Palpitations (principal); R07.9 Chest pain, unspecified; R06.02 Shortness of breath | CPT/HCPCS: 93225; 93226 ==

== ENCOUNTER → 2024-04-10 | Outpatient (CLI) | payer MEDICARE, SELFPAY ==
--- NOTE | 2024-04-10 12:51 | CT_ITS ---
STUDY: CT CHEST WITH CONTRAST REASON FOR EXAM: Female, 63 years old. CHEST PAIN RADIATION DOSAGE (If Supplied By Facility): CTDIvol = ( 28.52 ) mGy, DLP = ( 1110.61 ) mGycm TECHNIQUE: Transaxial imaging was performed following intravenous administration of IV-100 ML ISOVUE 370. Cardiac over read examination. Individualized dose optimization techniques were used for this CT. COMPARISON: No relevant priors. FINDINGS: CHEST The lungs are normal. There is no demonstrated pleural abnormality. There are calcifications of the coronary arteries. Normal mediastinum. Normal hilar regions. Normal unenhanced pulmonary arteries. Normal aorta arch and descending thoracic aorta. Normal osseous structures. There is no demonstrated abnormality of the visualized upper abdomen. CT/Limited Chest CT Cardiac Only IMPRESSION: Coronary artery calcification. Electronically Signed: Alberto Zuniga MD at 15:15 EDT ,
[2024-04-10 13:07] VITALS: BP 133/71; PULSE 83; RESP 16; TEMP 36.2; O2SAT 97; BMI 23.1
[2024-04-10 13:26] LABS: CREATININE FINGERSTICK < 1.0 mg/dL (0.55-1.02)
[2024-04-10 13:30] VITALS: BP 126/65; PULSE 72; RESP 16; O2SAT 94
[2024-04-10 13:34] VITALS: BP 112/50; PULSE 70
[2024-04-10] MEDS: Nitroglycerin SL (ED/IMG/CATH) 0.4 MG TABLET SL (13:34)
[2024-04-10 13:42] VITALS: BP 97/45; PULSE 74; RESP 16; O2SAT 97
--- NOTE | 2024-04-13 08:16 | CCTA.WCONT ---
CCTA w/Cont Coronary Arteries Date of Study:: 04/10/24 Chest pain shortness of breath Coronary Calcium Scoring: High-resolution Computed Tomographic imaging of the chest was performed on [04/10/2024], with particular attention paid to the coronary arteries. Intravenous contrast agent was administered per protocol and images reconstructed and displayed. LEFT MAIN CORONARY ARTERY: Arises from the left coronary cusp and appears to be normal with no significant stenosis [] LEFT ANTERIOR DESCENDING CORONARY ARTERY: Bifurcates from the left main coronary artery with moderate calcification noted in the proximal and mid segments with eccentric soft plaque noted. The distal LAD appears to have no significant high-grade stenosis. [] LEFT CIRCUMFLEX CORONARY ARTERY: Nondominant vessel with no significant stenosis noted [] RIGHT CORONARY ARTERY: Dominant right coronary artery with no significant atherosclerotic plaquing noted. [] THORACIC AORTA: Normal size CORONARY CALCIUM SCORE: Not done Conclusion: Coronary CT angiogram demonstrating evidence of atherosclerotic plaquing noted in the proximal and mid segments of the left anterior descending artery with mild to moderate stenosis noted.
== END | disposition home or self-care (01) ==
PROVIDERS: PCP Family Medicine; Referring Provider Internal Medicine Cardiovascular Disease; Visit Provider Internal Medicine Cardiovascular Disease
DX: R07.9 Chest pain, unspecified (principal); J44.9 Chronic obstructive pulmonary disease, unspecified; I10 Essential (primary) hypertension; E78.5 Hyperlipidemia, unspecified; F17.200 Nicotine dependence, unspecified, uncomplicated
CPT/HCPCS: 75574; 76380; A4216

== ENCOUNTER → 2024-08-31 | Outpatient (CLI) | payer MEDICARE, SELFPAY ==
[2024-08-31 12:30] VITALS: PULSE 105; PULSE 106; PULSE 107; PULSE 110; PULSE 88; PULSE 91; PULSE 99; O2SAT 93; O2SAT 94; O2SAT 96; O2SAT 98
--- NOTE | 2024-09-08 09:18 | PCM.PSN.6M ---
PSN 6 Minute Walk Test 6 Minute Walk Test 6 Minute Walk Test: 6 Minute Walk Test PSN:6-Minute Walk Test Start: 08/31/24 12:36 Freq: Status: Active Protocol: [id number] Document 08/31/24 12:30 AEH (Rec: 08/31/24 12:44 AEH [email or web address]) 6 Minute Walk Test Date Performed 08/31/24 Time Performed 12:30 Height 5 ft 5 in Weight: 133 lb Weight in Pounds 133.[address]: Assistive device used: None Pre-test Oxygen Delivery Method Room Air Pulse Ox (%) 96 Pulse Rate (60-100 beats/min) 88 Dyspnea Charlie Scale (0-10) 0 Exertion Charlie Scale (6-20) 6 1st minute Oxygen Delivery Method Room Air Pulse Ox (%) 94 Pulse Rate (60-100 beats/min) 99 2nd minute Oxygen Delivery Method Room Air Pulse Ox (%) 94 Pulse Rate (60-100 beats/min) 106 H 3rd minute Oxygen Delivery Method Room Air Pulse Ox (%) 94 Pulse Rate (60-100 beats/min) 105 H 4th minute Oxygen Delivery Method Room Air Pulse Ox (%) 93 Pulse Rate (60-100 beats/min) 110 H 5th minute Oxygen Delivery Method Room Air Pulse Ox (%) 94 Pulse Rate (60-100 beats/min) 106 H 6th minute Oxygen Delivery Method Room Air Pulse Ox (%) 94 Pulse Rate (60-100 beats/min) 107 H Dyspnea Charlie Scale (0-10) 2 Exertion Charlie Scale (6-20) 13 Post-test Oxygen Delivery Method Room Air Pulse Ox (%) 98 Pulse Rate (60-100 beats/min) 91 Full Laps Walked 22 Partial Lap, Number of Tiles Walked 27 Total Distance Walked (ft) 1325 Interpretation Interpretation: The patient ambulated 1325 feet over the course of 6 minutes beginning on room air without assistive devices. Pretesting oxygen saturation was noted to be 96% on room air. With ambulation, the alyson oxygen saturation was 93%. There was no significant exertional oxygen desaturation. Recommendations Recommendations: There is no indication for the use of supplemental oxygen at this time.
== END | disposition home or self-care (01) ==
LOC: PSN 12:02
PROVIDERS: PCP Family Medicine; Referring Provider Internal Medicine Critical Care Medicine; Visit Provider Internal Medicine Critical Care Medicine
DX: R91.8 Other nonspecific abnormal finding of lung field (principal); F17.210 Nicotine dependence, cigarettes, uncomplicated
CPT/HCPCS: 94618

== ENCOUNTER → 2024-09-11 | Outpatient (CLI) | payer MEDICARE, SELFPAY ==
--- NOTE | 2024-09-11 15:51 | CT_ITS ---
EXAM: CT CHEST WITHOUT INTRAVENOUS CONTRAST CLINICAL INDICATION: B/L Lung Nodules TECHNIQUE: Helically acquired images were obtained of the chest without intravenous contrast. This CT exam was performed using one or more of the following dose reduction techniques: automated exposure control, adjustment of the mA and/or kV according to patient size, and/or use of iterative reconstruction technique. COMPARISON: 04/15/2024 FINDINGS: LUNGS AND PLEURAL SPACES: There is a focus of groundglass opacity in the right upper lobe that measures 1 cm. There is scarring in the lung apices. No mass. No pleural effusion or thickening. No pneumothorax. HEART: There are mild coronary artery calcifications. Heart size is normal. No pericardial effusion. MEDIASTINUM: Unremarkable. No mediastinal or hilar adenopathy. Esophagus is unremarkable. No hiatal hernia. THYROID: Unremarkable. No thyroid lesions. BONES/JOINTS: Unremarkable. No suspicious lytic or blastic abnormality. VASCULATURE: See above. CT/Chest without Contrast IMPRESSION: Stable groundglass opacity in the right upper lobe. There is also stable scarring in the lung apices. There is no acute pulmonary abnormality. Lung-RADS score: 2 - Benign Appearance or Behavior. Recommend continued annual screening with a low-dose CT (LDCT) in 12 months. Electronically Signed: Deo Enriquez MD at 0:02 EST ,
== END | disposition home or self-care (01) ==
LOC: CT 15:49
PROVIDERS: PCP Family Medicine; Referring Provider Internal Medicine Critical Care Medicine; Visit Provider Internal Medicine Critical Care Medicine
DX: R91.8 Other nonspecific abnormal finding of lung field (principal); F17.210 Nicotine dependence, cigarettes, uncomplicated
CPT/HCPCS: 71250

== ENCOUNTER → 2024-09-22 | Outpatient (CLI) | payer MEDICARE, SELFPAY | END | disposition home or self-care (01) | LOC: PSN 12:01 | PROVIDERS: PCP Family Medicine; Referring Provider Internal Medicine Critical Care Medicine; Visit Provider Internal Medicine Critical Care Medicine | DX: R91.8 Other nonspecific abnormal finding of lung field (principal); F17.210 Nicotine dependence, cigarettes, uncomplicated | CPT/HCPCS: 94060; 94726; 94729 ==